=== PATIENT | male | born 1975 | race Caucasian/White ===

== ENCOUNTER 2019-05-05 13:15 | Emergency (ER) | payer OTHER ==
[~2019-05-05] VITALS: Ht 165.1 cm; Wt 74.8 kg
[2019-05-05] MEDS ORDERED: SKELAXIN800 MG PO (16:54)
== END 2019-05-05 17:30 | disposition home or self-care (01) ==
LOC: ER 13:15
DX: S20.212A Contusion of left front wall of thorax, initial encounter (principal); S20.211A Contusion of right front wall of thorax, initial encounter; S30.1XXA Contusion of abdominal wall, initial encounter; V49.9XXA Car occupant (driver) (passenger) injured in unspecified traffic accident, initial encounter; Y93.89 Activity, other specified; Y92.488 Other paved roadways as the place of occurrence of the external cause; Y99.8 Other external cause status

== ENCOUNTER 2023-04-06 11:38 | Outpatient (CLI) | payer OTHER ==
[~2023-04-06 11:38] MED LIST: SKELAXIN800 MG PO
== END 2023-04-06 11:39 | disposition home or self-care (01) ==
LOC: LAB 11:38
PROVIDERS: ATTEND Internal Medicine
DX: Z01.811 Encounter for preprocedural respiratory examination (principal); Z01.810 Encounter for preprocedural cardiovascular examination

== ENCOUNTER 2025-01-10 16:13 | Outpatient (CLI) | payer OTHER ==
[2025-01-10] MEDS ORDERED: CHILDREN'S ASPI81 MG PO (21:17)
== END 2025-01-10 16:18 | disposition home or self-care (01) ==
LOC: LAB 16:13
PROVIDERS: ATTEND Specialist
DX: L02.91 Cutaneous abscess, unspecified (principal)

== ENCOUNTER 2025-01-10 20:52 | Inpatient (IN) | payer OTHER ==
[~2025-01-10] VITALS: Ht 162.6 cm; Wt 70.8 kg
[2025-01-10] MEDS ORDERED: CHILDREN'S ASPI81 MG PO (21:17)
--- NOTE | 2025-01-10 21:20 | NUR ---
PTE ALERTA Y ORIENTADO X3 FUE ENVIADO POR EL DR. PEDRO GODOY POR CELLULITIS EN RAHEL ROGER. SE MIDEN S/V Y S EUBICA.
[2025-01-10] MEDS ORDERED: 0.9 % SODIUM CHLORIDE 1,000 ML IV SCH (23:00)
[2025-01-10] MEDS ORDERED: ACETAMINOPHEN 500 MG GEL..CAP PO PRN (23:00)
[2025-01-10] MEDS ORDERED: VANCOMYCIN HCL 1,000 MG VIAL IV ONE (23:00)
[2025-01-11] MEDS ORDERED: PIPERACILLIN/TAZOBACTAM SODIUM 3.375 GM in DEXTROSE 5 % IN WATER 100 ML IV SCH
[2025-01-11] MEDS ORDERED: VANCOMYCIN HCL 1,000 MG VIAL ONE (01:39)
[2025-01-11] MEDS ORDERED: PIPERACILLIN/TAZOBACTAM SODIUM 3.375 GM VIAL IV ONE (01:39)
[2025-01-11] MEDS ORDERED: FAMOTIDINE/PF 20 MG/2 ML VIAL ONE (01:40)
[2025-01-11 02:18] LABS: PH,URINE 7.5 (5.0-8.0); URINE APPEARANCE Clear; URINE BILIRRUBIN Negative (NEGATIVE); URINE BLOOD Negative; URINE COLOR Yellow; URINE GLUCOSE Negative (NEGATIVE); URINE KETONE Negative (NEGATIVE); URINE LEUKOCYTE Negative; URINE NITRATE Negative; URINE PROTEIN Negative (NEGATIVE); URINE UROBILINOGEN 0.2 E.U./dl
[2025-01-11 02:21] LABS: URINE WBC 6.1 uL (0.0-23.2)
[2025-01-11 02:31] LABS: URINE BACTERIA 0 uL (0.0-1933); URINE EPITHELIAL CELLS 0.7 uL (0.0-38.8); URINE RBC 0.8 uL (0.0-20.8)
[2025-01-11 03:29] LABS: HEMATOCRIT 44.2 % (39.0-48.0); HEMOGLOBIN 14.7 g/dL (13-16.00); MEAN CELL VOLUME 83.2 fL (80.0-100.00); MEAN CORPUSCULAR HEMOGLOBIN 27.6 pg (27.00-32.0); MEAN CORPUSCULAR HGB CONC 33.2 g/dl (32.0-36.0); PLATELET COUNT 381 K/uL (150-450); RED BLOOD COUNT 5.31 M/uL (4.00-6.00); RED CELL DISTRIBUTION WIDTH 12.8 % (11.5-14.5)
[2025-01-11 03:38] LABS: ERYTHROCYTE SEDIMENTATION RATE 48 mm/hr
[2025-01-11 04:40] VITALS: BP 150/81; O2SAT 98
[2025-01-11 06:34] LABS: INR 1.05; PROTHROMBIN TIME 11.4 SECONDS (9.0-11.5)
[2025-01-11 07:01] LABS: ALBUMIN 3.6 gm/dL (3.4-5.0); BILIRUBIN TOTAL 0.46 mg/dL (0.3-1.2); CREATININE SERUM 0.7 mg/dL (0.70-1.30); GFR 120.88; GLOBULINA 3.2 G/DL (2.4-3.5); POTASSIUM 4.07 mEq/L (3.5-5.1); TOTAL PROTEIN 6.8 gm/dL (6.4-8.2)
[2025-01-11 07:13] LABS: C-REACTIVE PROTEIN 0.38 MG/DL (0.00-0.29)
[2025-01-11] MEDS ORDERED: FAMOTIDINE/PF 20 MG in 0.9 % SODIUM CHLORIDE 8 ML IV PUSH SCH (09:00)
[2025-01-11] MEDS ORDERED: ENOXAPARIN SODIUM 40 MG/0.4 ML SYRINGE SUBCUTANEO SCH (09:00)
[2025-01-11 09:18] VITALS: BP 145/93
[2025-01-11] MEDS ORDERED: VANCOMYCIN HCL 1,000 MG VIAL IV SCH (17:00)
[2025-01-11 17:26] VITALS: BP 152/80; O2SAT 98
[2025-01-12 02:59] VITALS: BP 119/73
[2025-01-12 07:40] VITALS: BP 115/68; BP 173/63
[2025-01-12] MEDS ORDERED: SODIUM HYPOCHLORITE 1OZ TOP SCH (10:44)
[2025-01-12 18:24] VITALS: BP 125/69
[2025-01-12] MEDS ORDERED: FAMOTIDINE/PF 20 MG in 0.9 % SODIUM CHLORIDE 8 ML IV PUSH SCH (21:00)
[2025-01-13 02:36] VITALS: BP 123/72
[2025-01-13 05:30] LABS: HEMATOCRIT 39.3 % (39.0-48.0); HEMOGLOBIN 13.3 g/dL (13-16.00); MEAN CELL VOLUME 82.1 fL (80.0-100.00); MEAN CORPUSCULAR HEMOGLOBIN 27.7 pg (27.00-32.0); MEAN CORPUSCULAR HGB CONC 33.7 g/dl (32.0-36.0); PLATELET COUNT 319 K/uL (150-450); RED BLOOD COUNT 4.79 M/uL (4.00-6.00); RED CELL DISTRIBUTION WIDTH 12.5 % (11.5-14.5)
[2025-01-13 05:55] LABS: ALBUMIN 3.3 gm/dL (3.4-5.0); ALKALINE PHOSPHATASE 104 U/L (50-136); ALT/SGPT 64 U/L (12-78); ANION GAP 8 (10.0-20.0); AST/SGOT 26 U/L (15-37); BILIRUBIN TOTAL 0.64 mg/dL (0.3-1.2); BLOOD UREA NITROGEN 16 mg/dL (7-18); BUN CREA RATIO 19 (7.0-25.0); CALCIUM 9.1 mg/dL (8.5-10.1); CARBON DIOXIDE 27 mEq/L (21-32); CHLORIDE 111 mmol/L (98-107); CREATININE SERUM 0.85 mg/dL (0.70-1.30); GFR 96.62; GLUCOSE FASTING 87 mg/dL (65-100); OSMOLALITY SERUM 284 MOSM/KG (275-295); PHOSPHOROUS 4.2 mg/dL (2.5-4.9); POTASSIUM 3.93 mEq/L (3.5-5.1); SODIUM 142 mmol/L (136-145); TOTAL PROTEIN 6.3 gm/dL (6.4-8.2)
[2025-01-13 05:56] LABS: C-REACTIVE PROTEIN < 0.29 MG/DL (0.00-0.29)
[2025-01-13 09:11] VITALS: BP 119/753; O2SAT 97
[2025-01-13 17:27] VITALS: BP 120/85
[2025-01-14 01:45] VITALS: BP 116/74; O2SAT 97
[2025-01-14 09:07] LABS: ALBUMIN 3.4 gm/dL (3.4-5.0); CALCIUM 8.6 mg/dL (8.5-10.1); CREATININE SERUM 0.76 mg/dL (0.70-1.30); GFR 109.94; PHOSPHOROUS 3.6 mg/dL (2.5-4.9); POTASSIUM 4.79 mEq/L (3.5-5.1)
[2025-01-14 09:31] VITALS: BP 123/80; O2SAT 97
[2025-01-14 18:10] VITALS: BP 127/76; O2SAT 98
[2025-01-14] MEDS ORDERED: 0.9 % SODIUM CHLORIDE 10 ML VIAL IJ ONE (21:58)
[2025-01-15 02:45] VITALS: BP 126/69; O2SAT 97
[2025-01-15 13:09] VITALS: BP 124/81; O2SAT 97
[2025-01-15 19:07] VITALS: BP 125/81; O2SAT 100
[2025-01-16 01:12] VITALS: BP 121/77; O2SAT 97
[2025-01-16 08:31] LABS: HEMATOCRIT 39.3 % (39.0-48.0); HEMOGLOBIN 13.6 g/dL (13-16.00); MEAN CELL VOLUME 81.9 fL (80.0-100.00); MEAN CORPUSCULAR HEMOGLOBIN 28.3 pg (27.00-32.0); MEAN CORPUSCULAR HGB CONC 34.6 g/dl (32.0-36.0); PLATELET COUNT 317 K/uL (150-450); RED BLOOD COUNT 4.81 M/uL (4.00-6.00)
[2025-01-16 09:20] LABS: ALBUMIN 3.3 gm/dL (3.4-5.0); BILIRUBIN TOTAL 0.28 mg/dL (0.3-1.2); CREATININE SERUM 0.89 mg/dL (0.70-1.30); GFR 91.62; GLOBULINA 3.1 G/DL (2.4-3.5); POTASSIUM 4.37 mEq/L (3.5-5.1); TOTAL PROTEIN 6.4 gm/dL (6.4-8.2)
[2025-01-16 09:50] VITALS: BP 120/67
[2025-01-16] MEDS ORDERED: LACTOBACILLUS ACIDOPHILUS 1 CAP CAP PO SCH (10:01)
[2025-01-16 16:18] VITALS: BP 129/78
[2025-01-16] MEDS ORDERED: FAMOtidine 20 MG TABLET PO SCH (21:00)
[2025-01-17 02:42] VITALS: BP 117/67
[2025-01-17 08:00] VITALS: BP 116/70
[2025-01-17 16:15] VITALS: BP 151/87
[2025-01-18 02:15] VITALS: BP 106/65
[2025-01-18 09:10] VITALS: BP 124/73
[2025-01-18 18:41] VITALS: BP 123/78; O2SAT 98
[2025-01-19 01:29] VITALS: BP 107/59
[2025-01-19 09:14] VITALS: BP 112/67; BP 118/75; O2SAT 96; O2SAT 97; O2SAT 99
== END 2025-01-19 16:28 | disposition left against medical advice (07) | DRG 580 ==
LOC: ER 20:54 → MEDJ 22:56
PROVIDERS: General Practice; Internal Medicine; Internal Medicine Infectious Disease; ADMIT Internal Medicine; ATTEND Internal Medicine
PROC: B44HZZZ Ultrasonography of Bilateral Lower Extremity Arteries (ICD-10-PCS; 2025-01-10)
PROC: B54DZZZ Ultrasonography of Bilateral Lower Extremity Veins (ICD-10-PCS; 2025-01-10)
PROC: 0JDP0ZZ Extraction of Left Lower Leg Subcutaneous Tissue and Fascia, Open Approach (ICD-10-PCS; principal; 2025-01-11)
PROC: 0JDP0ZZ Extraction of Left Lower Leg Subcutaneous Tissue and Fascia, Open Approach (ICD-10-PCS; 2025-01-14)
PROC: 2W1MX6Z Compression of Left Lower Extremity using Pressure Dressing (ICD-10-PCS; 2025-01-14)
PROC: 0JDP0ZZ Extraction of Left Lower Leg Subcutaneous Tissue and Fascia, Open Approach (ICD-10-PCS; 2025-01-17)
DX: L97.823 Non-pressure chronic ulcer of other part of left lower leg with necrosis of muscle (principal); L03.116 Cellulitis of left lower limb; S80.12XA Contusion of left lower leg, initial encounter; I87.2 Venous insufficiency (chronic) (peripheral); B96.89 Other specified bacterial agents as the cause of diseases classified elsewhere